=== PATIENT | male | born 1960 | race Hispanic/Latino ===

== ENCOUNTER 2018-06-08 05:05 | Emergency (ER) | payer BC, SELFPAY ==
[2018-06-08 05:25] LABS: Base Excess (BEa) -3.4 mEq/L (-2.0 to +3.0); CO2 Tension 36.3 mmHg (35.0-45.0); pH, Arterial 7.38 (7.35-7.45)
[2018-06-08 05:26] LABS: Carboxyhemoglobin (COHb) 0.4 gm% (0.0-3.0); Hemoglobin (Hb) 16.9 g/dL (14.0-18.0)
[2018-06-08 05:27] LABS: ALV-art Gradient -20.645 (0-20); Analyzer IN Cardio ER; Calcium, Ionized 1.1 mmol/L (1.12-1.30); Potassium - ABG Lab 3.5 mmol/L (3.70-5.30); Puncture Site RRA
[2018-06-08 05:49] LABS: #Eosinphils 0.1 thou/uL (0.0-0.7); #Lymphocytes 1.1 thou/uL (1.20-3.40); #Monocytes 0.3 thou/uL (0.11-0.59); #Neutrophils 2.4 thou/uL (1.40-6.50); %Basophils 0.6 % (0.0-1.0); %Eosinophils 2.1 % (0.0-10.0); %Lymphocytes 27.4 % (21.0-51.0); %Monocytes 8.6 % (0.0-10.0); %Neutrophils 61.3 % (42.0-75.0); Hemoglobin 16.4 g/dL (14.0-18.0); Mean Corpuscular HGB CONC 34.9 g/dL (32.0-36.0); Mean Corpuscular Hemoglobin 33.2 pg (27.0-31.0); Mean Corpuscular Volume 95.1 fL (78.0-98.0); Mean Platelet Volume 6.8 fL (7.4-10.4); Platelet Count 217 thou/uL (130-400); RBC Distribution Width 11.2 % (11.5-14.5); Red Blood Cell (RBC) Count 4.95 mill/uL (4.70-6.10); White Blood Cell (WBC) Count 3.9 thou/uL (4.8-10.8)
[2018-06-08 06:00] LABS: ALT (SGPT) 26 U/L (8-55); AST (SGOT) 34 U/L (5-34); Albumin 4.3 g/dL (3.5-5.0); Alkaline Phosphatase 99 U/L (40-150); Anion Gap 15 mmol/L (10-20); BUN (Urea Nitrogen) 17 mg/dL (8.4-25.7); Bilirubin, Total 0.6 mg/dL (0.2-1.2); Calc. Creatinine Clearance 0 mL/min (70-130); Carbon Dioxide 21 mmol/L (22-29); Chloride 104 mmol/L (98-107); Estimated GFR-MDRD 73; Globulin 3.3 g/dL (2.4-3.5); Glucose 105 mg/dL (70-105); Potassium 3.8 mmol/L (3.5-5.1); Protein, Total 7.6 g/dL (6.0-8.3); Sodium 136 mmol/L (136-145)
[2018-06-08 06:05] LABS: CKMB 2.7 ng/mL (0-6.6); Troponin I Less than 0.010 ng/mL (< 0.028)
--- NOTE | 2018-06-08 09:01 | RAD ---
AP VIEW OF CHEST: Date: 06/08/18 INDICATION: History of dyspnea and dizziness after being exposed to fumes for past 6-7 hours. IMPRESSION: There is low lung volume. There is some subsegmental volume loss involving the left lung base. No con solidation is evident. No pleural effusion or pneumothorax is evident. No acute osseous abnormality i s evident. IMPRESSION: Low lung volumes with left basilar atelectasis. POS: [facility]
--- NOTE | 2018-06-11 13:40 | EKG ---
Test Reason : Blood Pressure : / mmHG Vent. Rate : 074 BPM Atrial Rate : 074 BPM P-R Int : 140 ms QRS Dur : 132 ms QT Int : 396 ms P-R-T Axes : 034 001 029 degrees QTc Int : 439 ms Normal sinus rhythm Non-specific intra-ventricular conduction block Cannot rule out Septal infarct , age undetermined Abnormal ECG Confirmed by DG GONCALVES M.D. ([id number]), editor [place] ([id number]) on 06/11/2018 1:40:20 PM Referred By: Confirmed By:DG GONCALVES M.D.
== END 2018-06-08 06:45 | disposition home or self-care (01) ==
LOC: ERS 05:05
DX: R00.2 Palpitations (principal); R42 Dizziness and giddiness; I10 Essential (primary) hypertension; Z79.899 Other long term (current) drug therapy
CPT/HCPCS: 36415; 71045; 80053; 82553; 82805; 84484; 85025; 93005

== ENCOUNTER 2019-08-06 03:24 | Emergency (ER) | payer SELFPAY ==
[2019-08-06 03:57] LABS: #Basophils 0.1 thou/uL (0.0-0.2); #Eosinphils 0.1 thou/uL (0.0-0.7); #Lymphocytes 1.8 thou/uL (1.20-3.40); #Monocytes 0.6 thou/uL (0.11-0.59); #Neutrophils 3.7 thou/uL (1.40-6.50); %Basophils 0.9 % (0.0-1.0); %Eosinophils 2.1 % (0.0-10.0); %Lymphocytes 28.9 % (21.0-51.0); %Monocytes 9.7 % (0.0-10.0); %Neutrophils 58.4 % (42.0-75.0); Hemoglobin 16.8 g/dL (14.0-18.0); Mean Corpuscular HGB CONC 34.7 g/dL (32.0-36.0); Mean Corpuscular Volume 92.4 fL (78.0-98.0); Mean Platelet Volume 7.8 fL (7.4-10.4); Platelet Count 264 thou/uL (130-400); RBC Distribution Width 11.4 % (11.5-14.5); Red Blood Cell (RBC) Count 5.24 mill/uL (4.70-6.10); White Blood Cell (WBC) Count 6.3 thou/uL (4.8-10.8)
[2019-08-06 05:33] LABS: Albumin 3.8 g/dL (3.5-5.0)
[2019-08-06 05:34] LABS: Calcium 8.7 mg/dL (7.8-10.44); Chloride 107 mmol/L (98-107); Potassium 3.9 mmol/L (3.5-5.1); Sodium 137 mmol/L (136-145)
[2019-08-06 05:35] LABS: Glucose 108 mg/dL (70-105)
[2019-08-06 05:36] LABS: Carbon Dioxide 22 mmol/L (22-29); Globulin 2.7 g/dL (2.4-3.5); Protein, Total 6.5 g/dL (6.0-8.3)
[2019-08-06 05:37] LABS: Anion Gap 12 mmol/L (10-20); Bilirubin, Total 0.5 mg/dL (0.2-1.2)
[2019-08-06 05:38] LABS: Alkaline Phosphatase 105 U/L (40-110)
[2019-08-06 05:39] LABS: BUN (Urea Nitrogen) 15 mg/dL (8.4-25.7); Calc. Creatinine Clearance 0 mL/min (70-130); Estimated GFR-MDRD 78
[2019-08-06 05:40] LABS: AST (SGOT) 16 U/L (5-34)
[2019-08-06 05:41] LABS: ALT (SGPT) 22 U/L (8-55); CK (CPK) 121 U/L (30-200)
--- NOTE | 2019-08-06 07:45 | RAD ---
EXAM: Single view of the chest HISTORY: Chest pain COMPARISON: 06/08/2018 FINDINGS: Single view of the chest shows a normal sized cardiomediastinal silhouette. There is no adeel dence of consolidation, mass, or pleural effusion. The bones are unremarkable. IMPRESSION: No evidence of acute cardiopulmonary disease
== END 2019-08-06 07:28 | disposition home or self-care (01) ==
LOC: ERS 03:24
DX: I48.91 Unspecified atrial fibrillation (principal); I10 Essential (primary) hypertension; Z79.899 Other long term (current) drug therapy
CPT/HCPCS: 36415; 71045; 80053; 82550; 84484; 85025; 93005; 96374